=== PATIENT | female | born 1955 | race Caucasian/White ===

== ENCOUNTER 2018-10-23 08:42 | Day surgery (SDC) | payer OTHER ==
[~2018-10-23] VITALS: Ht 162.6 cm; Wt 58.9 kg
[2018-10-23 09:29] VITALS: Ht 162.6 cm; Wt 58.9 kg
[2018-10-23 10:50] VITALS: BP 129/68; PULSE 78; RESP 14
[2018-10-23 11:10] VITALS: BP 122/60; PULSE 88; RESP 16
[2018-10-23] MEDS ORDERED: MIDAZOLAM 1 MG/ML 2 ML INJ ONE ×2 (11:38→11:39)
[2018-10-23] MEDS ORDERED: FENTAnyl 50 MCG/ML VIAL ONE (11:39)
[2018-10-23 11:42] VITALS: BP 140/70; PULSE 88; RESP 16
== END 2018-10-23 15:25 | disposition home or self-care (01) ==
LOC: GIL 08:42
PROVIDERS: ATTEND Internal Medicine Gastroenterology
DX: Z12.11 Encounter for screening for malignant neoplasm of colon (principal); K64.4 Residual hemorrhoidal skin tags; K57.30 Diverticulosis of large intestine without perforation or abscess without bleeding
CPT/HCPCS: 45378; J2250; J3010

== ENCOUNTER 2019-01-05 07:53 | Day surgery (SDC) | payer OTHER ==
--- NOTE | 2018-12-24 09:38 | PREOPHP ---
DATE OF ADMISSION: 12/25/2018 Scheduled for surgery on 12/25/2018. 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 23 years ago, the patient underwent dietz rgery for left breast cancer, but details are not available. The patient recently underwent screenin g mammography and an area of suspicious microcalcifications in the upper outer quadrant of the right breast was found. Multiple biopsies revealed ductal carcinoma in situ. She also had a biopsy of the right breast lower inner quadrant 5 o'clock, which was benign. The patient is scheduled to undergo ultrasound-guided excisional biopsy of the right breast. She also has concern about the second clip being present that she feels is causing pain and will consider removing that depending on how extensi ve that may be. MEDICATIONS: None. ALLERGIES: NONE. PAST SURGICAL HISTORY: Treatment for left breast cancer 23 years ago and received radiation, but the re were no other details available. PHYSICAL EXAMINATION: GENERAL: The patient is 5 foot 4 inches, 128 pounds VITAL SIGNS: Within normal limits. HEENT: Within normal limits. CHEST: Clear. HEART: Regular rhythm. BREASTS: Small. There is no palpable mass other than possible hematoma from core biopsy. There is no left breast mass. There is no axillary or supraclavicular lymphadenopathy. ABDOMEN: Soft. PELVIC AND RECTAL: Per primary care. EXTREMITIES: Without edema. NEUROLOGIC: Physiologic. ASSESSMENT: Ductal carcinoma in situ, right breast upper outer quadrant. PLAN: Right breast biopsy with preoperative needle localization. I have had a full discussion with the patient regarding the nature of her condition and the nature of the surgery, indications, alterna tives, options and risks including need for additional procedures based on final pathology and imagin g, need for additional other treatments scarring, distortion of the breast, etc. I have discussed th at removing the remaining clip in the breast may not relieve the pain, may not be related to pain. A ll questions have been answered. The patient understands and agrees to proceed. Dictated By: FRANK PALOMINO/NTS Conf#: [id number] DID#: [id number]
--- NOTE | 2018-12-25 08:52 | PREAC ---
Date/Time of Note Date/Time of Note DATE: 12/25/18 TIME: 08:50 Anesthesia Eval and Record Evaluation Time Pre-Procedure Interview DATE: 12/25/18 TIME: 08:50 Age 63 Sex female NPO: 8 hrs Preoperative diagnosis right breast cancer Planned procedure right mastectomy Past Medical History Past Medical History: Includes GI: Other (hx pancreatitis) Heme: Other (hx left breast cancer s/p radiation and surgery. ) Surgery & Anesthesia Issues No known issue Meds Anticoagulation: No Beta Jared within 24 hr: No Reason Beta Jared not given: Pt. not on B-Jared Reported Medications [None] No Conflict Check 10/23/18 Current Medications Sodium Chloride 1,000 ml @ 75 mls/hr [id number] IV ; Start 12/25/18 at 07:00; Stop 12/25/18 at 20:19 Meds reviewed: Yes Allergies Coded Allergies: No Known Allergy (Unverified , 10/23/18) Allergies Reviewed: Yes Labs/Studies Labs Reviewed: Reviewed by anesthesiologist test: N/A Pre-procedure Exam Airway: Adequate mouth opening, Adequate thyromental dist Mallampati: Mallampati I ASA Physical Status ASA physical status: 2 Emergency: None Planned Anesthetic General/MAC: LMA Planned Pain Management Parenteral pain med, Local by surgeon Pre-operative Attestations Prior to commencing anesthesia and surgery, the patient was re-evaluated, there was verification of: *The patient's identity *The results of appropriate recent lab work and preoperative vital signs *The above evaluation not changing prior to induction *Anesthetic plan, risk benefits, alternative and complications discussed with patient/family; questions answered; patient/family understands, accepts and wishes to proceed. ILDA MASSEY Dec 25, 2018 08:52
[2019-01-02 15:48] VITALS: Ht 162.6 cm; Wt 56.8 kg
[~2019-01-05] VITALS: Ht 162.6 cm; Wt 56.8 kg
[~2019-01-05 07:53] MED LIST: CEFAZOLIN 1 GM INJ ONE; CEFAZOLIN 2 GM/50 ML (PMX) 50 ML IVPB ONE; FENTAnyl 50 MCG/ML VIAL ONE; LIDOCAINE 2% (SDV) 5 ML INJ ONE; MIDAZOLAM 1 MG/ML 2 ML INJ ONE; PROPOFOL 0 ML ONE; SOD CHLORIDE 0.9% 1,000 ML IV SCH
[2019-01-05] MEDS ORDERED: ONDANSETRON 4 MG INJ ONE (11:45)
[2019-01-05] MEDS ORDERED: PROPOFOL 0 ML ONE (11:45)
[2019-01-05] MEDS ORDERED: KETOROLAC 30 MG INJ ONE (11:45)
[2019-01-05] MEDS ORDERED: MIDAZOLAM 1 MG/ML 2 ML INJ ONE (11:45)
[2019-01-05] MEDS ORDERED: CEFAZOLIN 1 GM INJ ONE (11:45)
[2019-01-05] MEDS ORDERED: SOD CHLORIDE 0.9% 1,000 ML IV ONE (12:30)
== END 2019-01-05 12:25 ==
LOC: SDS 07:53
PROVIDERS: ATTEND Surgery
DX: D05.11 Intraductal carcinoma in situ of right breast (principal); Z53.8 Procedure and treatment not carried out for other reasons
CPT/HCPCS: J0690; J1885; J2250; J2405; J3010

== ENCOUNTER 2019-01-05 12:31 | Emergency (ER) | payer OTHER ==
[~2019-01-05] VITALS: Wt 43.0 kg
--- NOTE | 2019-01-05 12:47 | ERD ---
ER Documentation Chief Complaint Chief Complaint Near syncope HPI Patient is a 63-year-old female with no medical problems who presents with near syncope. The patient was at same-day surgery in preparation for a breast biopsy. The patient was getting injections of pain medication and of the breast when she almost passed out. She did not fully pass out. She said that she did not eat much food yesterday and did not eat anything today because of the procedure. She had cardiac clearance done 12 days ago in preparation for the procedure. She does have a primary doctor. She feels fine now. ROS All systems reviewed and are negative except as per history of present illness. Medications Home Meds Reported Medications [None] No Conflict Check 10/23/18 Allergies Allergies: Coded Allergies: No Known Allergy (Unverified , 10/23/18) PMhx/Soc History of Surgery: Yes (hysterectomy, lumpectomy left breast ca, c-sec x1) Anesthesia Reaction: No Hx Neurological Disorder: No Hx Respiratory Disorders: No Hx Cardiac Disorders: No Hx Psychiatric Problems: No Hx Miscellaneous Medical Probl: Yes (breast ca) Hx Alcohol Use: Yes (OCCASIONAL) Hx Substance Use: No Hx Tobacco Use: No FmHx Family History: No diabetes Physical Exam Physical Exam Const: No acute distress Head: Atraumatic Eyes: Normal Conjunctiva ENT: Normal External Ears, Nose and Mouth. Neck: Full range of motion. No meningismus. Resp: Clear to auscultation bilaterally Cardio: Regular rate and rhythm, no murmurs Abd: Soft, non tender, non distended. Normal bowel sounds Skin: No petechiae or rashes Back: No midline or flank tenderness Ext: No cyanosis, or edema Neur: Awake and alert Psych: Normal Mood and Affect Procedures/MDM EKG read by me: Rate/Rhythm: Regular rate and rhythm at a rate of 65 Intervals: Normal Impression: No evidence of ischemia or arrhythmia Patient is a 63-year-old female who presents with near syncope. EKG was normal. The patient is well-appearing and has no symptoms at this time. I believe her symptoms are likely vasovagal and related to the fact that she was getting injections into the breast just prior to the near syncope. The patient will be discharged and will need to follow-up with her primary doctor within 1 week. She can return for any worsening symptoms. She can schedule her procedure for a another date. Departure Diagnosis: Primary Impression: Near syncope Condition: Fair Patient Instructions: Near Syncope, Vasovagal Referrals: Your doctor Additional Instructions: Llame al doctor nombrado ashlyn (Referral Sources) MAANA y danielle ernesto ANTONIA PARA DENTRO DE ERNESTO SEMANA. Dgale a la secretaria que nosotros le instruimos hacer esta antonia.Avise o llame si dietz condicin se empeora antes de la antonia. MANUEL INIGUEZ MD Jan 05, 2019 12:47
[2019-01-05 12:54] VITALS: BP 150/77; PULSE 91; RESP 18
== END 2019-01-05 14:27 | disposition home or self-care (01) ==
LOC: E/R 12:31
DX: R55 Syncope and collapse (principal); Z85.3 Personal history of malignant neoplasm of breast
CPT/HCPCS: 93005; Z7502

== ENCOUNTER 2019-01-07 07:38 | Day surgery (SDC) | payer OTHER ==
[2019-01-07] VITALS (12 sets, daily range): BP systolic 114–147; BP diastolic 56–86; PULSE 68–100; RESP 16–56; Ht 162.6 cm; Wt 58.4 kg
[~2019-01-07] VITALS: Ht 162.6 cm; Wt 58.4 kg
[~2019-01-07 07:38] MED LIST changes: -CEFAZOLIN 1 GM INJ ONE; -FENTAnyl 50 MCG/ML VIAL ONE; -LIDOCAINE 2% (SDV) 5 ML INJ ONE; -MIDAZOLAM 1 MG/ML 2 ML INJ ONE; -PROPOFOL 0 ML ONE
[2019-01-07] MEDS ORDERED: DESFLURANE 15 MIN ONE (12:30)
[2019-01-07] MEDS ORDERED: KETOROLAC 30 MG INJ ONE (12:37)
[2019-01-07] MEDS ORDERED: PROPOFOL 20 ML ONE (12:37)
[2019-01-07] MEDS ORDERED: MIDAZOLAM 1 MG/ML 2 ML INJ ONE (12:37)
[2019-01-07] MEDS ORDERED: ONDANSETRON 4 MG INJ ONE (12:37)
--- NOTE | 2019-01-07 13:27 | PREAC ---
Date/Time of Note Date/Time of Note DATE: 01/07/19 TIME: 13:25 Anesthesia Eval and Record Evaluation Time Pre-Procedure Interview DATE: 01/07/19 TIME: 13:25 Age 63 Sex female NPO: 8 hrs Preoperative diagnosis Breast Cancer Planned procedure Partial Mastectomy Past Medical History Past Medical History: Includes Recreational drugs: Other (Breast Cancer) Surgery & Anesthesia Issues No known issue Meds Anticoagulation: No Beta Jared within 24 hr: No Reason Beta Jared not given: Pt. not on B-Jared Discontinued Reported Medications [None] No Conflict Check 10/23/18 Current Medications Sodium Chloride 1,000 ml @ 75 mls/hr [id number] IV Last administered on 01/07/19at 06:00; Admin Dose 75 MLS/HR; Start 01/07/19 at 06:00; Stop 01/07/19 at 23:00 Meds reviewed: Yes Allergies Coded Allergies: No Known Allergy (Unverified , 01/07/19) Allergies Reviewed: Yes Labs/Studies Labs Reviewed: Reviewed by anesthesiologist Result Diagram: 01/07/19 0810 01/07/19 0810 Laboratory Tests 01/07/19 08:10 test: N/A Pre-procedure Exam Last vitals Vital Signs Date Temp Pulse Resp B/P (MAP) Pulse Ox O2 O2 Flow FiO2 Time Delivery Rate 01/07/19 97.0 68 16 145/73 100 Room Air 11:15 (97) Airway: Adequate mouth opening Mallampati: Mallampati II Teeth: Normal Lung: Normal Heart: Normal ASA Physical Status ASA physical status: 2 Emergency: None Planned Anesthetic General/MAC: LMA Pre-operative Attestations Prior to commencing anesthesia and surgery, the patient was re-evaluated, there was verification of: *The patient's identity *The results of appropriate recent lab work and preoperative vital signs *The above evaluation not changing prior to induction *Anesthetic plan, risk benefits, alternative and complications discussed with patient/family; questions answered; patient/family understands, accepts and wishes to proceed. MATEO POE MD Jan 07, 2019 13:27
--- NOTE | 2019-01-07 13:28 | HPN ---
Date/Time of Note Date/Time of Note DATE: 01/07/19 TIME: 13:28 Interval H&P Admission Note Pt. seen H&P reviewed: No system changes FRANK GARCIA Jan 07, 2019 13:28
[2019-01-07] MEDS ORDERED: ONDANSETRON 4 MG INJ IV PRN (13:30)
[2019-01-07] MEDS ORDERED: FENTAnyl 50 MCG/ML VIAL IV PRN (13:30)
[2019-01-07] MEDS ORDERED: HYDROmorphONE 1 MG/5 ML IV SYRINGE IV PRN (13:30)
[2019-01-07] MEDS ORDERED: LIDOCAINE 1% (MPF) 30 ML INJ ONE (13:34)
--- NOTE | 2019-01-07 14:59 | PAC ---
Date/Time of Note Date/Time of Note DATE: 01/07/19 TIME: 14:59 Post-Anesthesia Notes Post-Anesthesia Note Last documented vital signs Vital Signs Date Temp Pulse Resp B/P (MAP) Pulse Ox O2 O2 Flow FiO2 Time Delivery Rate 01/07/19 97.0 68 16 145/73 100 Room Air 11:15 (97) Activity: WNL Respiratory function: WNL Cardiovascular function: WNL Mental status: Baseline Pain reasonably controlled: Yes Hydration appropriate: Yes Nausea/Vomiting absent: Yes MATEO POE MD Jan 07, 2019 14:59
[2019-01-07] MEDS ORDERED: OXYCODONE/ACETAMINOPHEN (5/325) TAB PO PRN (15:00)
--- NOTE | 2019-01-07 15:04 | SIPON ---
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
--- NOTE | 2019-01-07 23:44 | OPR ---
DATE OF OPERATION: 01/07/2019 SURGEON: Frank Nascimento DPM MEDICAL STAFFING COORDINATOR SURGEON: None. ANESTHESIOLOGIST: Redd Salas MD TYPE OF ANESTHESIA: General. PREOPERATIVE DIAGNOSES: 1. Ductal carcinoma in situ, right outer breast. 2. Retained clip from prior biopsy, right breast, 5 o'clock retroareolar with patient symptoms. POSTOPERATIVE DIAGNOSES: 1. Ductal carcinoma in situ, right outer breast. 2. Retained clip from prior biopsy, right breast, 5 o'clock retroareolar with patient symptoms. OPERATION PERFORMED: Right breast partial mastectomy with preoperative needle localization x2. INDICATIONS: The patient underwent surgery for left breast cancer 23 years ago, but details are not available. She recently underwent screening mammography and suspicious microcalcifications in the outer right breast were found. Core biopsies revealed ductal carcinoma in situ. She also previously had a biopsy of the right breast lower inner quadrant 5 o'clock adjacent to the areola, which was benign, but a clip was left, which she feels is causing pain. DESCRIPTION OF PROCEDURE: The patient was taken to the operating room and under general anesthesia, with sequential compression device stockings in place, she was prepped and draped in the usual fashion. A radial incision was made starting in the outer right breast at 9 o'clock and extending circumareolar in the inferior sector. Flaps were dissected. Both wires were brought into the field. The wire that localized the retained clip immediately came out, but it was clear where the prior biopsy had been. The other clip was brought into the field marking the ductal carcinoma in situ. A wide excision was made encompassing the clip and the surrounding tissues down to the chest wall orienting the specimen with suture markers anterior, superior, and medial. Hemostasis was achieved with cautery. Then, I resected the retained clip prior biopsy area encompassing it with the resection, achieving hemostasis with cautery. Both specimens were submitted for specimen radiography, following which they were both submitted separately for pathology. The field was irrigated and after hemostasis was seen to be secured, I closed the subcutaneous tissues with interrupted 3-0 Vicryl. The skin was closed with continuous 4-0 Monocryl subcuticular suture. Mastisol and 1/2-inch Steri-Strips were applied, followed by dry sterile dressing. Final sponge and needle counts were correct. The patient tolerated the procedure well and left the operating room in good condition. Dictated By: FRANK PALOMINO/DARREN Conf#: [id number] DID#: [id number]
== END 2019-01-07 16:29 | disposition home or self-care (01) ==
LOC: SDS 07:38
PROVIDERS: ATTEND Surgery
DX: D05.11 Intraductal carcinoma in situ of right breast (principal)
CPT/HCPCS: 19301; 80053; 85025; 85610; 85730; 88307; J0690; J1885; J2250; J2405; J3010; Z7512; Z7610